=== PATIENT | male | born 1940 | race Caucasian/White ===

== ENCOUNTER 2017-11-07 13:57 | Emergency (ER) | payer MEDICARE, OTHER ==
[~2017-11-07] VITALS: Ht 172.7 cm; Wt 80.0 kg
[2017-11-07] MEDS ORDERED: SODIUM CHLORIDE FLUSH 10ML SYR IVF ONE (14:30)
[2017-11-07] MEDS ORDERED: SODIUM CHLORIDE 0.9% 1,000ML IVBOLUS ONE (14:30)
[2017-11-07] MEDS ORDERED: ATEN100T PO (15:04)
[2017-11-07] MEDS ORDERED: ASPI-496 PO (15:04)
[2017-11-07] MEDS ORDERED: AMLO2.5T PO (15:04)
[2017-11-07] MEDS ORDERED: METF850T2 PO (15:05)
[2017-11-07] MEDS ORDERED: LISI40TA PO (15:05)
[2017-11-07 15:06] LABS: HEMATOCRIT 50.9 % (39.2-51.8); HEMOGLOBIN 16.9 g/dL (13.7-18.0); WHITE BLOOD COUNT 10.2 x10^3/uL (3.4-10)
[2017-11-07] MEDS ORDERED: PROM5SYR PO (15:07)
[2017-11-07] MEDS ORDERED: SIMV20TA PO (15:07)
[2017-11-07] MEDS ORDERED: CEPH750C9 PO (15:08)
[2017-11-07] MEDS ORDERED: SULF1TAB24 PO (15:08)
[2017-11-07 15:17] LABS: BLOOD UREA NITROGEN 25 mg/dL (7-18)
[2017-11-07 15:23] LABS: ASPARTATE AMINO TRANSFERASE 22 U/L (15-37)
[2017-11-07 15:27] LABS: IS PT STATUS REG ER OR PRE ER? YES
[2017-11-07 18:12] VITALS: BP 167/62
== END 2017-11-07 18:15 | disposition home or self-care (01) ==
LOC: ED 16:46
DX: R94.31 Abnormal electrocardiogram [ECG] [EKG] (principal)
CPT/HCPCS: 36415; 71010; 80053; 84484; 85025; 85610; 93005; 96360; 96361; 99285; J7030

== ENCOUNTER 2017-11-09 09:58 | Day surgery (SDC) | payer MEDICARE, OTHER ==
[~2017-11-09] VITALS: Ht 172.7 cm; Wt 73.0 kg
[~2017-11-09 09:58] MED LIST: AMLO2.5T PO; ASPI-496 PO; ATEN100T PO; CEPH750C9 PO; LISI40TA PO; METF850T2 PO; PROM5SYR PO; SIMV20TA PO; SULF1TAB24 PO
[2017-11-09] MEDS ORDERED: LIDOCAINE 1%, 2ML ONE (10:36)
[2017-11-09] MEDS ORDERED: HYDR-879 PO (10:54)
[2017-11-09] MEDS ORDERED: ATOR-2 PO (10:58)
[2017-11-09] MEDS ORDERED: LACTATED RINGERS 1,000 ML IV SCH (10:59)
[2017-11-09] MEDS ORDERED: LIDOCAINE 1%, 2ML SQ PRN (11:00)
[2017-11-09 11:01] VITALS: BP 101/66
[2017-11-09] MEDS ORDERED: PROMETHAZINE 25 MG/ML, 1ML IV PRN (11:30)
[2017-11-09] MEDS ORDERED: LABETALOL 5MG/ML, 20ML IV PRN (11:30)
[2017-11-09] MEDS ORDERED: FENTANYL PF 100 MCG/2ML IV PRN (11:30)
[2017-11-09] MEDS ORDERED: ACETAMINOPHEN 325 MG TABLET PO PRN (11:30)
[2017-11-09] MEDS ORDERED: ONDANSETRON 2MG/ML, 2ML IVPush PRN (11:30)
[2017-11-09] MEDS ORDERED: HYDROmorphone 1 MG/ML, 1ML IV PRN (11:30)
[2017-11-09] MEDS ORDERED: OXYcodone 5 MG/5 ML ORAL.SOL UDC PO PRN (11:30)
[2017-11-09] MEDS ORDERED: EPHEDRINE 50 MG/ML, 1ML IVPush PRN (11:30)
[2017-11-09] MEDS ORDERED: hydrALAzine 20 MG/ML, 1ML IV PRN (11:30)
[2017-11-09] MEDS ORDERED: METOPROLOL 1 MG/ML, 5ML IV PRN (11:30)
[2017-11-09] MEDS ORDERED: ALBUTEROL SULFATE 2.5 MG/3 ML NPPB PRN (11:30)
[2017-11-09] MEDS ORDERED: CEFAZOLIN 1,000 MG ONE ×2 (12:13)
[2017-11-09] MEDS ORDERED: ONDANSETRON 2MG/ML, 2ML ONE (12:13)
[2017-11-09] MEDS ORDERED: METOCLOPRAMIDE 5 MG/ML, 2ML ONE (12:13)
[2017-11-09] MEDS ORDERED: PROPOFOL 10 MG/ML, 20ML ONE (12:13)
[2017-11-09] MEDS ORDERED: ROPIvacaine/PF 0.5%, 30 ML ONE (12:34)
[2017-11-09] MEDS ORDERED: FENTANYL PF 100 MCG/2ML ONE (12:49)
[2017-11-09] MEDS ORDERED: BUPIVACAINE/PF-EPI 0.5% 1:200K INFIL ONE (12:53)
[2017-11-09] MEDS ORDERED: OXYcodone/APAP 10/325MG TABLET ONE (15:00)
[2017-11-09] MEDS ORDERED: OXYcodone/APAP 10/325MG TABLET PO ONE (15:30)
== END 2017-11-09 15:30 ==
LOC: OUT 09:58
PROVIDERS: ATTEND Orthopaedic Surgery
DX: S82.831A Other fracture of upper and lower end of right fibula, initial encounter for closed fracture (principal); S82.891A Other fracture of right lower leg, initial encounter for closed fracture; S93.491A Sprain of other ligament of right ankle, initial encounter; E11.9 Type 2 diabetes mellitus without complications; I10 Essential (primary) hypertension; Z91.041 Radiographic dye allergy status; X58.XXXA Exposure to other specified factors, initial encounter; Y93.89 Activity, other specified; Y92.89 Other specified places as the place of occurrence of the external cause; Y99.8 Other external cause status
CPT/HCPCS: 27769; 27784; 27829; 73590; 76000; 82962; C1713; J0690; J2405; J2704; J2765; J2795; J3010